=== PATIENT | male | born 1965 | race Caucasian/White ===

== ENCOUNTER 2019-02-26 16:23 | Outpatient (CLI) | payer BC ==
--- NOTE | 2019-02-26 16:43 | RAD ---
THREE VIEWS THORACIC SPINE: History: Dorsalgia. Back pain after moving a piano. FINDINGS: Three views of the thoracic spine shows normal height and alignment of vertebral bodies and intervert ebral discs without fracture or subluxation. No degenerative changes are seen. IMPRESSION: Unremarkable exam. POS: [id number]
== END 2019-02-26 16:24 | disposition home or self-care (01) ==
LOC: BICRAD 16:23
PROVIDERS: ATTEND Family Medicine
DX: M54.6 Pain in thoracic spine (principal)
CPT/HCPCS: 72072